=== PATIENT | female | born 1995 | race African-American/Black ===

== ENCOUNTER 2016-12-22 22:55 | Emergency (ER) | payer MEDICARE ==
[~2016-12-22] VITALS: Ht 165.1 cm; Wt 154.2 kg
[~2016-12-22 22:55] MED LIST: CIPR500T94 PO; HYDR-971 PO
[2016-12-23 00:05] LABS: BASO # 0.1 x10^3/uL (0.0-0.2); BASO % 1 % (0-3); EOS % 1 % (0-3); HEMATOCRIT 33.3 % (36.0-47.0); HEMOGLOBIN 10.5 g/dL (12.0-15.5); LYMPH # 2.9 x10^3/uL (1.0-4.8); LYMPH % 36 % (24-48); MEAN CORPUSCULAR HEMOGLOBIN 24 pg (25-35); MEAN CORPUSCULAR HGB CONC 32 g/dL (31-37); MEAN CORPUSCULAR VOLUME 77 fL (79-100); MONO % 9 % (0-9); NEUT % 54 % (31-73); PLATELET COUNT 423 x10^3/uL (140-400); RED BLOOD COUNT 4.35 x10^6/uL (3.50-5.40); RED CELL DISTRIBUTION WIDTH 17.3 % (11.5-14.5); WHITE BLOOD COUNT 8.1 x10^3/uL (4.0-11.0)
[2016-12-23 00:12] LABS: BILIRUBIN,URINE NEGATIVE (NEG); GLUCOSE,URINE NEGATIVE (NEG); NITRITE,URINE NEGATIVE (NEG); PROTEIN,URINE NEGATIVE (NEG-TRACE)
[2016-12-23] MEDS ORDERED: IOHEXOL 300 MG/ML 75 ML VIAL IV ONE (00:15)
[2016-12-23 00:24] LABS: CALCIUM 9.3 mg/dL (8.5-10.1); CREATININE 0.7 mg/dL (0.6-1.0); GFR 126.6; POTASSIUM 4.2 mmol/L (3.5-5.1)
[2016-12-23 00:30] LABS: ALBUMIN 3.2 g/dL (3.4-5.0); ALBUMIN/GLOBULIN RATIO 0.6 (1.0-1.7); TOTAL BILIRUBIN 0.1 mg/dL (0.2-1.0); TOTAL PROTEIN 8.6 g/dL (6.4-8.2)
[2016-12-23] MEDS ORDERED: CONTRAST GIVEN MC PRN (00:30)
[2016-12-23 00:37] LABS: BACTERIA,URINE 0 /HPF (0-FEW); SQUAMOUS EPITHELIAL CELL,UR FEW /LPF
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
--- NOTE | 2016-12-23 01:07 | RAD ---
INDICATION: luq pain; Omni 300, 75ml COMPARISON: None. TECHNIQUE: Axial CT images were obtained through the abdomen and pelvis with intravenous contrast. One or more of the following individualized dose reduction techniques were utilized for this examination: 1. Automated exposure control; 2. Adjustment of the mA and/or kV according to patient size; 3. Use of iterative reconstruction technique. FINDINGS: Chest Base: Minimal linear opacity right lung base, could be atelectasis. There may be a tiny defect in the right hemidiaphragm posteriorly with fat extending through it. Vessels: No abdominal aortic aneurysm. Liver/Biliary: No intrahepatic biliary duct dilation. Pancreas: No peripancreatic edema. Spleen: Normal. Kidneys/Adrenal: There is some high density in the bilateral renal pelvis. Difficult to tell if this is excreted contrast or tiny nonobstructive renal stones. No hydronephrosis. Bladder: Largely decompressed. GI: No free air. No bowel dilation to suggest obstruction. There is a suspected appendicolith but no definite inflammation adjacent to appendix at this time. IMPRESSION: 1. Suspected appendicolith but no definite periappendiceal inflammation is seen at this time. 2. No evidence of bowel obstruction. Electronically signed by: Wild Constantino MD (12/23/2016 1:04 AM) [id number]
[2016-12-23 02:17] VITALS: BP 134/68
--- NOTE | 2016-12-23 06:26 | EKG ---
[facility] [address] [place] [address] Test Date: 2016-12-23 Test Time: 00:04:12 Pat Name: TERI LOWE Department: Room: Gender: F Progressive Care Unit Registered Nurse: YESSY : 1995 Requested By: LOVE MAE Order Number: [id number] Reading MD: Measurements Intervals [place] Rate: 79 P: 35 [place]: 194 QRS: 66 QRSD: 92 T: 7 QT: 356 QTc: 409 Interpretive Statements SINUS RHYTHM QRS(T) CONTOUR ABNORMALITY CONSIDER ANTEROLATERAL MYOCARDIAL DAMAGE RI6.01 Unconfirmed report No previous ECG available for comparison
--- NOTE | 2016-12-23 07:35 | RAD ---
EXAM: CHEST 1 VIEW History: Chest pain COMPARISON: None available. TECHNIQUE: Single portable radiograph of the chest FINDINGS: The cardiac silhouette is unremarkable. The lungs are clear bilaterally. The costophrenic sulci are clear and well demarcated. IMPRESSION: No radiographic evidence of an acute cardiopulmonary process.
== END 2016-12-23 02:18 | disposition home or self-care (01) ==
LOC: ER 22:55
DX: R10.12 Left upper quadrant pain (principal)
CPT/HCPCS: 36415; 71010; 74177; 80053; 81001; 81025; 83690; 84484; 85025; 87086; 93005; 99285; Q9967